=== PATIENT | female | born 1990 | race Asian ===

== ENCOUNTER → 2016-06-14 | Outpatient (CLI) | payer OTHER ==
[~2016-06-14] MED LIST: MTR600X PO; OXYC-57 PO; PRENTAB26 PO
[2016-06-14 16:01] LABS: THYROID STIMULATING HORMONE 2.26 uIu/ml (0.300-4.500)
== END | disposition home or self-care (01) ==
LOC: C.LAB1850 14:00
PROVIDERS: ATTEND Obstetrics & Gynecology
DX: Z86.39 Personal history of other endocrine, nutritional and metabolic disease (principal)

== ENCOUNTER → 2016-07-26 | Outpatient (CLI) | payer OTHER ==
[2016-07-26 14:29] LABS: URINE APPEARANCE CLEAR (CLEAR); URINE BILIRUBIN NEG (NEG); URINE COLOR DK YELLOW; URINE EPITHELIAL CELL AUTO >30 /lpf (0-5); URINE NITRITE NEG (NEG); URINE PH 6.5 (4.5-7.5); UROBILINOGEN NEG (NEG)
[2016-07-26 14:33] LABS: MANUAL MICROSCOPIC REQUIRED? NO; REVIEW REQ? NO
== END | disposition home or self-care (01) ==
LOC: C.LABSPEC 13:44
PROVIDERS: ATTEND Obstetrics & Gynecology
DX: Z34.83 Encounter for supervision of other normal pregnancy, third trimester (principal)

== ENCOUNTER → 2016-07-26 | Outpatient (CLI) | payer OTHER ==
[2016-07-26 12:41] LABS: HEMATOCRIT 35.2 % (37-47)
[2016-07-26 13:58] LABS: GTGD 50 Grams
== END | disposition home or self-care (01) ==
LOC: C.LAB1850 10:50
PROVIDERS: ATTEND Obstetrics & Gynecology
DX: Z34.83 Encounter for supervision of other normal pregnancy, third trimester (principal)

== ENCOUNTER → 2016-08-02 | Outpatient (CLI) | payer OTHER | END | disposition home or self-care (01) | LOC: C.LAB1850 07:54 | PROVIDERS: ATTEND Obstetrics & Gynecology | DX: O28.9 Unspecified abnormal findings on antenatal screening of mother (principal); Z3A.00 Weeks of gestation of pregnancy not specified ==

== ENCOUNTER → 2016-09-23 | Outpatient (CLI) | payer OTHER | END | disposition home or self-care (01) | LOC: C.LABSPEC 17:21 | PROVIDERS: ATTEND Obstetrics & Gynecology | DX: Z34.83 Encounter for supervision of other normal pregnancy, third trimester (principal) ==

== ENCOUNTER 2016-10-01 12:56 | Outpatient (CLI) | payer OTHER ==
[~2016-10-01 12:56] MED LIST changes: -MTR600X PO; -OXYC-57 PO
--- NOTE | 2016-10-07 13:13 | EDITING REQUIRED CODING QUERY ---
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 Please assist us with the question(s) below: Coding Question: The patient received care in labor and delivery on 09/21/16 as noted within the record. Please document the diagnosis that is being addressed by the medication/treatment. Provider Response: DIAGNOSIS: Decreased movement Thank you for your assistance, Aviva Cardenas - Driver Education Road Instructor
[2016-10-13] MEDS ORDERED: OXYC-57 PO (08:27)
[2016-10-13] MEDS ORDERED: MTR600X PO (08:27)
== END 2016-10-01 13:35 | disposition home or self-care (01) ==
LOC: C.OPB 12:56 → C.LD 12:56 → C.OPB 13:35
PROVIDERS: ATTEND Obstetrics & Gynecology
DX: O36.8130 Decreased fetal movements, third trimester, not applicable or unspecified (principal); Z3A.37 37 weeks gestation of pregnancy

== ENCOUNTER → 2016-10-07 | Outpatient (CLI) | payer OTHER ==
[~2016-10-07] MED LIST changes: +MTR600X PO; +OXYC-57 PO
[2016-10-07 15:25] LABS: URINE APPEARANCE CLEAR (CLEAR); URINE BILIRUBIN NEG (NEG); URINE COLOR YELLOW; URINE NITRITE NEG (NEG); URINE PH 6.5 (4.5-7.5); URINE SPECIFIC GRAVITY 1.014 (1.000-1.030); UROBILINOGEN NEG (NEG)
[2016-10-07 15:31] LABS: MANUAL MICROSCOPIC REQUIRED? NO; REVIEW REQ? NO
== END | disposition home or self-care (01) ==
LOC: C.LABSPEC 14:37
PROVIDERS: ATTEND Obstetrics & Gynecology
DX: O34.219 Maternal care for unspecified type scar from previous cesarean delivery (principal)

== ENCOUNTER 2016-10-09 22:22 | Inpatient (IN) | payer OTHER ==
[~2016-10-09] VITALS: Ht 160 cm; Wt 72.3 kg
[~2016-10-09 22:22] MED LIST changes: -MTR600X PO; -OXYC-57 PO
[2016-10-09] MEDS ORDERED: LACTATED RINGER'S 1000ML 1,000 ML IV SCH ×2 (23:07→23:09)
[2016-10-09] MEDS ORDERED: LACTATED RINGER'S 1000ML 1,000 ML IV PRN (23:07)
[2016-10-09] MEDS ORDERED: CITRIC ACID/SODIUM CITRATE 15 ML UDC ONE (23:13)
[2016-10-09 23:14] VITALS: Ht 160 cm; Wt 72.3 kg
[2016-10-09] MEDS ORDERED: CITRIC ACID/SODIUM CITRATE 15 ML UDC PO ONE (23:15)
[2016-10-09] MEDS ORDERED: CEFAZOLIN IV 2,000 MG in DEXTROSE 5% 50ML 50 ML IV ONE (23:30)
[2016-10-09] MEDS ORDERED: MoRPHine SULFATE PF 1 MG/ML 10 ML AMP/VIAL ONE (23:30)
[2016-10-09] MEDS ORDERED: FENTANYL CITRATE INJ 50 MCG/1 ML 2 ML VIAL ONE (23:30)
[2016-10-09] MEDS ORDERED: PHENYLEPHRINE HCL INJ 10 MG/ML VIAL ONE (23:34)
[2016-10-09] MEDS ORDERED: OXYTOCIN INJ 10 UNITS/ML VIAL ONE (23:34)
[2016-10-09 23:37] LABS: BASO % 0.1 %; BASO ABS # 0.01 K/uL (0-0.2); EOS % 0.7 %; HEMATOCRIT 36.8 % (37-47); IG% 0.2 %; LYMPH % 28.4 %; LYMPH ABS # 2.66 K/uL (1.2-3.4); MEAN CELL VOLUME 92.5 fL (80-100); MEAN CORPUSCULAR HEMOGLOBIN 29.9 pg (25-34); MEAN PLATELET VOLUME 9.4 fL (7.4-10.4); MONO % 6.6 %; PLATELET COUNT 265 K/uL (130-400); RED BLOOD COUNT 3.98 M/uL (4.2-5.4); WHITE BLOOD COUNT 9.35 K/uL (4.8-10.8)
[2016-10-09 23:39] LABS: COMPLETE YES; MEAN CORPUSCULAR HGB CONC 32.3 g/dl (32-36)
[2016-10-09 23:46] LABS: INR 0.9 (0.9-1.1); PARTIAL THROMBOPLASTIN RATIO 1.1; PROTHROMBIN TIME (PATIENT) 9.2 SECONDS (9.0-12.0)
--- NOTE | 2016-10-09 23:54 | HISTORY & PHYSICAL EXAMINATION ---
DATE OF ADMISSION: 10/09/2016 ADMITTING DIAGNOSES: 1. Term . 2. Active labor. 3. Previous section. ADMISSION HISTORY: The patient is a 26-year-old 2, para 1, with an EDC of 10/17/2016 by first trimester ultrasound, who presented to labor and delivery in active labor. The patient states the contractions began earlier this evening and increased in intensity. She denied rupture of membranes or vaginal bleeding. The patient had been scheduled for repeat section on 10/14/2016. Her first delivery was a primary section in 2014 in [place] for failure to progress. This was remarkable for an abnormal quad screen. The patient had a laboratory evaluation for this which included a Panorama which was negative. She also had an amniocentesis which showed 46 XX karyotype. The patient also had an elevated 1-hour Glucola at 28 weeks with a normal 2-hour glucose tolerance test. Her blood type is A positive, antibody negative, rubella immune, hepatitis B negative. She had a negative third trimester beta strep culture. PAST MEDICAL HISTORY: OBSTETRICAL: As above. ONCOLOGY SOCIAL WORK: None. MEDICAL: Hypothyroidism. SURGICAL: Tonsillectomy. ALLERGIES: No known drug allergies. SOCIAL HISTORY: No smoking. FAMILY HISTORY: Noncontributory. REVIEW OF SYSTEMS: As per HPI. ADMISSION PHYSICAL EXAMINATION: GENERAL: Shows a gravid female in no acute distress. VITAL SIGNS: Blood pressure 140/90. HEENT: Unremarkable. NECK: Supple. LUNGS: Clear. HEART: With a regular rhythm and rate. ABDOMEN: Gravid, vertex, positive heart tones, estimated weight of 8 pounds. PELVIC: Shows the cervix to be 3-4 cm dilated, 80% effaced and -2 station. EXTREMITIES: Show no deep calf tenderness. NEUROLOGIC: Grossly intact. IMPRESSION: A 26-year-old 2, para 1, 38+ weeks gestational age, active labor, previous section. PLAN: The patient had been scheduled for a repeat section and is in active labor, we will proceed with a repeat section. The patient had an elevated blood pressure and some protein in urine. No history of PIH or blood pressure problems during the . Preeclamptic labs will be ordered preoperatively and a decision if any further evaluation or treatment is needed will be decided post-. The risks, benefits and alternatives to the surgery have been discussed. While the benefits will be delivery of the infant, the risks are bleeding, infection, inadvertent injury to bowel or bladder, readmission or reoperation. The patient understands that. The permit has been signed and she wishes to proceed.
[2016-10-10] VITALS (19 sets, daily range): BP systolic 99–116; BP diastolic 60–76; PULSE 74–91; TEMP 36.7–37.5; O2SAT 95–100
[2016-10-10 00:04] LABS: CREATININE 0.95 mg/dl (0.60-1.20); URIC ACID 6.6 mg/dl (2.6-7.2)
[2016-10-10] MEDS ORDERED: OXYTOCIN INJ 10 UNITS/ML VIAL ONE (00:23)
[2016-10-10] MEDS ORDERED: NALOXONE HCL INJ 1 MG in SODIUM CHLORIDE 0.9% 1000ML 1,000 ML IV PRN (00:34)
[2016-10-10] MEDS ORDERED: SODIUM CHLORIDE 0.9% 1000ML 1,000 ML IV PRN (00:34)
[2016-10-10] MEDS ORDERED: LACTATED RINGER'S 1000ML 500 ML IV PRN (00:34)
[2016-10-10] MEDS ORDERED: NALOXONE HCL INJ 0.08 MG in SYRINGE 1.8 ML IV PRN (00:34)
[2016-10-10] MEDS ORDERED: MoRPHine SULFATE 2 MG/ML CARP IV PRN (00:45)
[2016-10-10] MEDS ORDERED: LANOLIN OINT EXT PRN ×2 (00:45)
[2016-10-10] MEDS ORDERED: MoRPHine SULFATE PF 1 MG/ML 10 ML AMP/VIAL EPI PRN (00:45)
[2016-10-10] MEDS ORDERED: HYDROCORTISONE ACETATE 25 MG SUPP PR PRN (00:45)
[2016-10-10] MEDS ORDERED: ONDANSETRON INJ 2 MG/ML 2 ML VIAL IV PRN ×2 (00:45→18:00)
[2016-10-10] MEDS ORDERED: DiphenhydrAMINE HCL 50 MG/ML VIAL IV PRN ×2 (00:45→18:00)
[2016-10-10] MEDS ORDERED: DIPHTHERIA/TETANUS/PERTUSSIS 0.5 ML SYR/VIAL IM. ONE (00:45)
[2016-10-10] MEDS ORDERED: NALOXONE HCL 0.4 MG/1 ML VIAL/CARP IV PRN (00:45)
[2016-10-10] MEDS ORDERED: NO NARCOTICS OR SEDATIVES SCH (00:45)
[2016-10-10] MEDS ORDERED: EpHEDrine SULFATE INJ 50 MG/ML AMP IV PRN (00:45)
[2016-10-10] MEDS ORDERED: MAGNESIUM HYDROXIDE SUSP 30 ML UDC PO PRN (00:45)
[2016-10-10] MEDS ORDERED: SENNA 8.6 MG TAB PO PRN (00:45)
[2016-10-10] MEDS ORDERED: NALBUPHINE HCL INJ 10 MG/ML AMP IV PRN (00:45)
[2016-10-10] MEDS ORDERED: MEPERIDINE HCL 25 MG/ML CARP IV PRN (00:45)
[2016-10-10] MEDS ORDERED: SUPERCREAM 0.870 % 15GM JAR EXT PRN (00:45)
[2016-10-10] MEDS ORDERED: BENZOCAINE 20% AER SPR 82.5 GM CAN EXT PRN (00:45)
--- NOTE | 2016-10-10 00:52 | [facility] Post Operative Brief Note ---
Immediate Operative Summary Operative Date Oct 10, 2016. Pre-Operative Diagnosis 1. Active labor 2. Previous caesarean section Post-Operative Diagnosis Same Procedure(s) Performed Repeat caesarean section, lower uterine transverse incision, delivery of live female child at 0011 on 10/10/16. Surgeon Dr. Pedersen Police Surgeon Surgeon(s) Aleena Arizmendi RN Estimated Blood Loss 1000cc Findings Viable female , Apgars 8/9 weight 6lbs 14ozs, gasses pending, laceration of fundus of uterus; nml appearing tubes and ovaries bilaterally Fluids (cc crystalloids) 2300 Specimens Placenta-hold Cord blood Cord blood gases Drains Tobar to gravity Anesthesia Spinal Complication(s) None Disposition L&D
--- NOTE | 2016-10-10 01:11 | OPERATIVE REPORT ---
DATE OF OPERATION: 10/10/2016 PREOPERATIVE DIAGNOSES: 1. Term . 2. Active labor. 3. Previous section. POSTOPERATIVE DIAGNOSES: Same. PROCEDURE PERFORMED: Repeat low cervical transverse section. SURGEON: Dr. Pedersen. ANESTHESIA: Spinal. FINDINGS: Viable female with Apgars of 8 and 9, weight of 6 pounds 14 ounces. Multiple adhesions of the omentum and uterus to the anterior surface of the fascia. Incidental repair of uterine laceration from dissection, normal appearing tubes and ovaries bilaterally. PROCEDURE IN DETAIL: The patient was taken to the operating room and after spinal anesthesia, was placed in supine position and draped and prepped in the usual fashion. Pfannenstiel type incision, excising previous surgical scar was made. Underlying subcutaneous tissue was dissected down to the ventral abdominal fascia, which was nicked and opened in a horizontal manner. Preperitoneal fascia was dissected away until the peritoneal cavity was entered. Bleeding was noted from the fundus of the uterus from a dense adhesion of the uterus to the anterior abdominal wall. This adhesion had been cut when dissecting the fascia off the anterior wall of the rectus muscle. Uterine incision was made and a viable female was delivered with thick meconium. Good vigorous cry at , terminating any meconium resuscitation. Cord was clamped and cut and the baby was passed off to pediatrics who was in attendance for the delivery. Cord gases, cord blood samples obtained. The placenta was delivered spontaneously. The adhesion of the uterus to the anterior fascia was cauterized and cut, allowing the uterus to be removed and delivered out of the pelvis. There was a 5 cm defect in the fundus of the uterus from the adhesion. The uterine incision from the was closed with 2 layers of 4-0 Vicryl, the first a running locking stitch, the second an imbricating stitch. The fundal laceration was repaired with a running 0 Monocryl suture. Hemostasis was present. The uterus was returned to the pelvic cavity. Paracolic gutters were cleared bilaterally of any blood tissue and/or clot. The incision was then copiously irrigated with over 1000 mL of warm saline, which was removed. Sponge and needle count was correct. Uterine incision and uterine laceration were inspected for hemostasis, which was present. The fascia was then closed laterally in a running 0 Vicryl stitch. The subcutaneous tissue was irrigated with warm saline and the skin incision was closed with a 4-0 Monocryl subcuticular suture. Sterile dressing was applied and the patient was taken to the recovery room in satisfactory condition. I attest to the content of the Intraoperative Record and any orders documented therein. Any exception s are noted below.
[2016-10-10] MEDS: KETOROLAC TROMETHAMINE 30 MG/ML VIAL IV. PRN ×2 (02:33→10:01)
--- NOTE | 2016-10-10 02:36 | Anesthesiology Progress Note ---
Anesthesia Post Op Note Date & Time Oct 10, 2016 at 02:36 Vital Signs Pain Intensity: 3.0 Notes Mental Status: alert / awake / arousable, participated in evaluation Pt Amnestic to Procedure: Yes Nausea / Vomiting: adequately controlled Pain: adequately controlled Airway Patency, RR, SpO2: stable & adequate BP & HR: stable & adequate Hydration State: stable & adequate Neuraxial Anesthesia: was administered, sensory block is resolving Anesthetic Complications: no major complications apparent
[2016-10-10] MEDS: OXYTOCIN INJ 20 UNITS in LACTATED RINGER'S 1000ML 1,000 ML IV SCH ×2 (02:38→11:04)
[2016-10-10] MEDS: DOCUSATE SODIUM 100 MG CAP PO SCH ×2 (07:41→19:46)
[2016-10-10] MEDS: FERROUS SULFATE 325 MG TAB PO SCH (07:41)
[2016-10-10] MEDS: PRENATAL VITAMIN TAB PO SCH (07:42)
[2016-10-10] MEDS ORDERED: KETOROLAC TROMETHAMINE 30 MG/ML VIAL IV. PRN (18:00)
[2016-10-10] MEDS ORDERED: OXYCODONE/ACETAMINOPHEN 5-325 TAB PO PRN (18:00)
[2016-10-10] MEDS ORDERED: DC INTRASPINAL MORPHINE SCH (18:00)
[2016-10-10] MEDS: OXYCODONE/ACETAMINOPHEN 5-325 TAB PO PRN (19:47)
[2016-10-10] MEDS: IBUPROFEN 600 MG TAB PO PRN (19:47)
[2016-10-11] MEDS: OXYCODONE/ACETAMINOPHEN 5-325 TAB PO PRN ×5 (00:31→21:12)
[2016-10-11] MEDS: IBUPROFEN 600 MG TAB PO PRN ×4 (00:31→21:11)
[2016-10-11 07:39] VITALS: BP 116/71; PULSE 90; TEMP 36.7; O2SAT 97
[2016-10-11] MEDS: FERROUS SULFATE 325 MG TAB PO SCH (07:53)
[2016-10-11] MEDS: DOCUSATE SODIUM 100 MG CAP PO SCH ×2 (07:53→20:11)
[2016-10-11] MEDS: PRENATAL VITAMIN TAB PO SCH (07:53)
[2016-10-11 07:56] LABS: HEMATOCRIT 26.2 % (37-47); MEAN CELL VOLUME 92.3 fL (80-100); MEAN CORPUSCULAR HEMOGLOBIN 29.9 pg (25-34); MEAN CORPUSCULAR HGB CONC 32.4 g/dl (32-36); MEAN PLATELET VOLUME 8.9 fL (7.4-10.4); PLATELET COUNT 200 K/uL (130-400); RED BLOOD COUNT 2.84 M/uL (4.2-5.4); WHITE BLOOD COUNT 10.25 K/uL (4.8-10.8)
[2016-10-11 07:59] LABS: BASO % 0.2 %; BASO ABS # 0.02 K/uL (0-0.2); COMPLETE YES; EOS % 0.5 %; IG% 0.3 %; LYMPH % 20.6 %; LYMPH ABS # 2.11 K/uL (1.2-3.4); MONO % 6.3 %; NEUT % 72.1 %
--- NOTE | 2016-10-11 08:01 | Progress Note ---
Subjective Oct 11, 2016. Subjective conversation w/ patient, physical exam Ambulation: ambulating normally Voiding: no voiding problems Passing Gas: Yes Diet Tolerance: Regular Diet Lochia: Moderate Feeding Type: Breast Feeding Review of Systems Constitutional: No fever, No chills Respiratory: No cough Abdomen: No nausea, No vomiting Objective Vital Signs Date Time Temp Pulse Resp B/P (MAP) Pulse Ox O2 Delivery O2 Flow Rate FiO2 10/11/16 07:39 36.7 90 20 116/71 (86) 97 Room Air 10/10/16 23:15 Room Air 10/10/16 23:15 36.8 90 16 99/60 (73) Room Air 10/10/16 19:45 37.2 77 16 114/76 (89) 96 Room Air 10/10/16 17:59 18 97 10/10/16 17:00 16 100 10/10/16 16:00 18 99 10/10/16 15:15 96 Room Air 10/10/16 15:15 37.2 76 16 114/76 (89) 95 Room Air 10/10/16 15:00 18 96 10/10/16 13:00 16 96 10/10/16 12:14 16 96 10/10/16 12:13 20 95 10/10/16 11:20 36.9 75 16 116/74 (88) 95 Room Air 10/10/16 11:20 16 95 10/10/16 11:12 36.7 74 16 116/75 (89) 96 Room Air 10/10/16 08:30 18 96 Physical Exam General Appearance: WELL-APPEARING, NO APPARENT DISTRESS Respiratory/Chest: no respiratory distress, no accessory muscle use Cardiovascular: no edema Abdomen: non tender, soft Fundus: Firm Incision Description: Clean, Dry & Intact Extremities: no calf tenderness Laboratory Results Last 24 Hours Test 10/11/16 06:53 White Blood Count 10.25 K/uL Red Blood Count 2.84 M/uL Hemoglobin 8.5 g/dL Hematocrit 26.2 % Mean Corpuscular Volume 92.3 fL Mean Corpuscular Hemoglobin 29.9 pg Mean Corpuscular Hemoglobin Concent 32.4 g/dl Platelet Count 200 K/uL Mean Platelet Volume 8.9 fL Neutrophils (%) (Auto) 72.1 % Lymphocytes (%) (Auto) 20.6 % Monocytes (%) (Auto) 6.3 % Eosinophils (%) (Auto) 0.5 % Basophils (%) (Auto) 0.2 % Neutrophils # (Auto) 7.39 K/uL Lymphocytes # (Auto) 2.11 K/uL Monocytes # (Auto) 0.65 K/uL Eosinophils # (Auto) 0.05 K/uL Basophils # (Auto) 0.02 K/uL RDW Standard Deviation 50.2 fL RDW Coefficient of Variation 15.3 % Immature Granulocyte % (Auto) 0.3 % Immature Granulocyte # (Auto) 0.03 K/uL Red Blood Cell Morphology Unremarkable Assessment and Plan Post-Op Day#: 1 Continue Routine Care: POD#1 with severe adhesions per Dr. Pedersen. Hgb pending this AM. Clinically recovering well, ,routine POC.
[2016-10-11 09:20] VITALS: BP 114/78; PULSE 88; O2SAT 96
[2016-10-11 15:30] VITALS: BP 103/84; PULSE 84; TEMP 36.6
[2016-10-11 19:30] VITALS: BP 106/67; PULSE 80; TEMP 36.5
[2016-10-11] MEDS ORDERED: BISACODYL 5 MG TABEC PO ONE (22:00)
[2016-10-11 23:45] VITALS: BP 119/82; PULSE 90; TEMP 36.7
[2016-10-12] MEDS ORDERED: BISACODYL 10 MG SUPP PR PRN (00:45)
[2016-10-12] MEDS: OXYCODONE/ACETAMINOPHEN 5-325 TAB PO PRN ×3 (03:11→21:53)
[2016-10-12] MEDS: IBUPROFEN 600 MG TAB PO PRN ×4 (03:11→21:53)
--- NOTE | 2016-10-12 05:53 | OB/GYN Progress Note ---
TRUCK OPERATOR Progress Note Date of Service Oct 12, 2016. Subjective conversation w/ patient, physical exam, chart review, lab review Ambulation: ambulating normally Voiding: no voiding problems Passing Gas: Yes Diet Tolerance: Regular Diet Lochia: Small Feeding Type: Breast Feeding (and bottle feeding) Pain: 3/10 controlled with pain medications Review of Systems Constitutional: No fever Respiratory: No shortness of breath Cardiac: No chest pain Breast: No problem reported Abdomen: No nausea, No vomiting Female : No dysuria Objective Vital Signs Date Time Temp Pulse Resp B/P (MAP) Pulse Ox O2 Delivery O2 Flow Rate FiO2 10/11/16 23:45 Room Air 10/11/16 23:45 36.7 90 20 119/82 (94) Room Air 10/11/16 19:30 36.5 80 20 106/67 (80) Room Air 10/11/16 15:30 36.6 84 20 103/84 (90) Room Air 10/11/16 15:30 Room Air 10/11/16 09:20 88 18 114/78 (90) 96 Room Air 10/11/16 07:55 Room Air 10/11/16 07:39 36.7 90 20 116/71 (86) 97 Room Air Physical Exam General Appearance: WELL-APPEARING Respiratory/Chest: lungs clear, normal breath sounds, no respiratory distress Cardiovascular: regular rate, rhythm Abdomen: normal bowel sounds, non tender, soft Fundus: Firm, Relation to Umbilicus (2 finger breaths below) Incision Description: Clean, Dry & Intact Extremities: non-tender, no pedal edema Laboratory Results Last 24 Hours Test 10/11/16 06:53 White Blood Count 10.25 K/uL Red Blood Count 2.84 M/uL Hemoglobin 8.5 g/dL Hematocrit 26.2 % Mean Corpuscular Volume 92.3 fL Mean Corpuscular Hemoglobin 29.9 pg Mean Corpuscular Hemoglobin Concent 32.4 g/dl Platelet Count 200 K/uL Mean Platelet Volume 8.9 fL Neutrophils (%) (Auto) 72.1 % Lymphocytes (%) (Auto) 20.6 % Monocytes (%) (Auto) 6.3 % Eosinophils (%) (Auto) 0.5 % Basophils (%) (Auto) 0.2 % Neutrophils # (Auto) 7.39 K/uL Lymphocytes # (Auto) 2.11 K/uL Monocytes # (Auto) 0.65 K/uL Eosinophils # (Auto) 0.05 K/uL Basophils # (Auto) 0.02 K/uL RDW Standard Deviation 50.2 fL RDW Coefficient of Variation 15.3 % Immature Granulocyte % (Auto) 0.3 % Immature Granulocyte # (Auto) 0.03 K/uL Red Blood Cell Morphology Unremarkable Medications Current Inpatient Medications Medications (Trade) Dose Ordered Sig/Wilda Route Start Time Stop Time Status Last Admin Dose Admin Morphine Sulfate (Duramorph Pf Inj) TODAY PRN EPI 10/10/16 00:45 Ketorolac Tromethamine (Toradol Inj) 30 mg Q6H PRN IV. 10/10/16 18:00 10/15/16 17:59 Oxycodone/ Acetaminophen (Percocet 5-325mg Tab) 1 tab Q4H PRN PO 10/10/16 18:00 10/24/16 17:59 10/12/16 03:11 1 TAB Oxycodone/ Acetaminophen (Percocet 5-325mg Tab) 2 tab Q4H PRN PO 10/10/16 18:00 10/24/16 17:59 Ibuprofen (Motrin Tab) 600 mg Q4H PRN PO 10/10/16 00:45 11/09/16 00:44 10/12/16 03:11 600 MG Ondansetron HCl (Zofran Inj) 4 mg Q4H PRN IV 10/10/16 18:00 11/09/16 17:59 Prenat Multivit/ Vest Maker/Iron/Folic Ac ( Vitamin Tab) 1 tab DAILY PO 10/10/16 08:00 11/09/16 07:59 10/11/16 07:53 1 TAB Bisacodyl (Dulcolax Supp) 10 mg PRN PRN VA 10/12/16 00:45 11/11/16 00:44 Docusate Sodium (coLACE CAP) 100 mg BID PO 10/10/16 08:00 11/09/16 07:59 10/11/16 20:11 100 MG Magnesium Hydroxide (Milk Of Magnesia Susp) 30 ml HS PRN PO 10/10/16 00:45 11/09/16 00:44 Ferrous Sulfate (Feosol Tab) 325 mg DAILY PO 10/10/16 08:00 11/09/16 07:59 10/11/16 07:53 325 MG Cocaine HCl (Supercream 0.870% Cr) BID PRN EXT 10/10/16 00:45 10/24/16 00:44 Lanolin (Lanolin Oint) PRN PRN EXT 10/10/16 00:45 11/09/16 00:44 Hydrocortisone Acetate (Anusol Hc Supp) 25 mg BID PRN VA 10/10/16 00:45 11/09/16 00:44 Benzocaine (Dermoplast Aero Spr) 1 appln PRN PRN EXT 10/10/16 00:45 11/09/16 00:44 Diphenhydramine HCl (Benadryl Cap) 25 mg QID PRN PO 10/10/16 18:00 11/09/16 17:59 10/10/16 19:47 25 MG Diphenhydramine HCl (Benadryl Inj) 25 mg QID PRN IV 10/10/16 18:00 11/09/16 17:59 Senna (Senokot Tab) 17.2 mg HS PRN PO 10/10/16 00:45 11/09/16 00:44 Assessment and Plan Post-Op Day Number: 2 Continue Routine Care: A/P: This is a 26 y/o female, , POD # 2 s/p repeat . She is ambulating and clinically stable. Plan: - Vitals signs are reviewed and WNL (Tmax 36.7 ) - Last Hgb is 8.5 (10/11) - Blood type A+, GBS neg, Rubella Immune - Routine post operative care - Encourage ambulation, monitor and control pain with medication as needed, continue with regular diet as tolerated and monitor lochia - Stool softeners and sitz bath recommended - Encourage breast feeding and educate about breast feeding Resident Physician Supervision Note: I was present with Dr. Armando during the history and exam. I discussed the case with the resident and agree with the findings and plan as documented in the note. Any exceptions or clarifications are listed here: POD#2 doing well. Continue routine postop care. Will anticipate dc home tomorrow. Documented By: Kalyani Og Resident Involvement: Resident Care Provided Care Provided: OB Delivery
[2016-10-12 06:41] LABS: HEMATOCRIT 24.9 % (37-47)
--- NOTE | 2016-10-12 07:58 | Discharge Instructions ---
Discharge Instructions Date of Service Oct 12, 2016. Admission Reason for Admission: Check Labor Discharge Discharge Diagnosis / Problem: after delivery Discharge Goals Goal(s): Routine recovery after delivery Medications Continue Dispensed Medications: supercream, dermaplast, lansinoh Activity Recommendations Activity Limitations: per Instructions/Follow-up section . Instructions / Follow-Up Instructions / Follow-Up ACTIVITY RECOMMENDATIONS: * Gradual return to full activity over the next 2-3 weeks. * No lifting - nothing heavier than baby over the next 2-3 weeks. * Do not engage in vigorous exercise, sexual activity or sports until cleared by your physician. * Do not drive or operate any motorized equipment until cleared by your physician. * You may shower/bathe daily. MEDICATIONS: For discomfort or pain, you may use Acetaminophen (Tylenol), Ibuprofen (Advil), or Naproxen (Aleve) following the package directions. For constipation you may use Colace following the package directions. BREAST CARE: If you are not breast feeding: * Wear a supportive bra 24 hours a day for one to two weeks. * Avoid stimulating your breasts and nipples as much as possible during the first few weeks after delivery. * When taking a shower, have the warm water hit your back, not breasts. * When your breasts feel full, apply ice packs. Usually three to four times a day helps ease the discomfort. * Take a mild pain medication (Tylenol / Motrin) when you are uncomfortable. If breast feeding: * Use breast milk to lubricate nipples. Lansinoh cream may be used for sore nipples. You do not need to remove cream prior to breast feeding. If using a different brand of cream, check the label for directions regarding removal of cream prior to nursing. * Wear a supportive bra. * If having problems with breasts or breast feeding, call a art consultant or your health care provider. SPECIAL CARE INSTRUCTIONS: When you are discharged from the hospital, it is important for you to follow the instructions listed below: * During the first week at home, you should be able to care for yourself and your baby. In addition, the usual light household activities are encouraged. * Limit your activities to the way you feel. Do not try to clean the house or move furniture. Be sensible. * If you actively engage in sports and have done so up until the time of your delivery, you may resume these activities as soon as you feel able. This may take up to one month or even longer. Use good judgment. * Continue to take your vitamins for at least six weeks after the of your baby. * Your diet need not be limited unless you were on a special diet before your delivery. Breast-feeding mothers need around 2500 calories per day and at least 64-80 ounces of fluid per day (8 to 10 glasses). * You should eat foods from the four major food groups. Crash diets or fad diets are to be avoided. Eating lean meats, fresh fruits and vegetables, low-fat dairy products, high fiber foods and a regular exercise program, will help you get back to your pre- weight without putting your health at risk. * Constipation is sometimes a problem after delivery. Take a mild laxative as needed. If breast feeding, Milk of Magnesia is acceptable to use. You may use a suppository or Fleets enema. * A daily shower or tub bath is suggested. Wash incision daily with warm soapy water and pat dry. It doesn't need to be covered unless drainage is present. * A bloody vaginal discharge will usually continue until around four weeks . A small amount of bleeding may continue for as long as six weeks. Vaginal discharge changes from the bright red bleeding after delivery to pink then brownish and finally yellowish-pink before becoming white and disappearing. * Bleeding may increase with activity. Your first period may come in 4-8 weeks. If you are breast feeding, your period may be delayed even longer. * [place]den (sex) can begin whenever both you and your partner feel comfortable and do not have any form of genital infection. It is recommended that you wait at least six weeks for internal and external healing to occur. If you have questions, please talk to your health care practitioner. A condom should be used to prevent infection and . * Foreplay, gentle intercourse and lubrication is very important the first several times to prevent pain. A water-based lubricant such as K-Y jelly or Astroglide may be used. * If you have RH negative blood and your baby is RH positive, you will receive RHOGAM by injection prior to discharge. The nurse will give you a card to keep with you that has the date and place that you received RHOGAM after delivery. * During your care, you had a Rubella screen done to check for the presence of rubella antibodies in your blood. If your test was negative, you will receive a Rubella vaccine prior to discharge. This vaccine may cause a fever, soreness at the injection site and flu-like symptoms. If these symptoms persist, notify your health care practitioner. is not advised for one month after a Rubella vaccine. * Verbalizes understanding of car seat law as reviewed with patient nursing. * Car Seat hand-out given and reviewed with patient by nursing. * Shaken baby information reviewed with patient by nursing. Call you doctor if: * Heavy bleeding (saturating several pads an hour) or passing clots the size of your fist. * A fever >101 degrees F (38.3 degrees C) on two occasions four hours apart and /or chills. * Unusual pain in the pelvic or vaginal areas. * Call the doctor for any increased redness, drainage or swelling around the incision and any pain unrelieved by prescribed pain medication. * "Baby Blues" lasting longer than two weeks. If you have any questions or concerns, call your health care practitioner at . FOLLOW UP VISIT: * Please call the office at to schedule a 6 week examination. It is important you keep this appointment. It is important for you to make arrangements for either yearly or twice yearly check-ups thereafter. Current Hospital Diet Patient's current hospital diet: Regular OB Diet Discharge Diet Recommended Diet: Regular Diet Procedures Procedures Performed: Repeat caesarean section, lower uterine transverse incision, delivery of live female child at 0011 on 10/10/16. Pending Studies Studies pending at discharge: no Medical Emergencies . Who to Call and When: Medical Emergencies: If at any time you feel your situation is an emergency, please call [phone] immediately. . Non-Emergent Contact Non-Emergency issues call your: Injection Press Operator . . "Provider Documentation" section prepared by Slime Armando. . VTE Core Measure Inpt VTE Proph given/why not?: SCD's
[2016-10-12 08:15] VITALS: BP 112/88; PULSE 92; TEMP 36.7
[2016-10-12] MEDS: PRENATAL VITAMIN TAB PO SCH (09:17)
[2016-10-12] MEDS: DOCUSATE SODIUM 100 MG CAP PO SCH ×2 (09:17→20:03)
[2016-10-12] MEDS: FERROUS SULFATE 325 MG TAB PO SCH (09:17)
[2016-10-12 15:40] VITALS: BP 114/73; PULSE 85; TEMP 36.9; O2SAT 97
[2016-10-12 23:25] VITALS: BP 121/79; PULSE 88; TEMP 37
[2016-10-13] MEDS: IBUPROFEN 600 MG TAB PO PRN ×2 (04:02→08:16)
[2016-10-13] MEDS: PRENATAL VITAMIN TAB PO SCH (08:16)
[2016-10-13] MEDS: FERROUS SULFATE 325 MG TAB PO SCH (08:16)
[2016-10-13] MEDS: DOCUSATE SODIUM 100 MG CAP PO SCH (08:16)
[2016-10-13] MEDS: OXYCODONE/ACETAMINOPHEN 5-325 TAB PO PRN (08:16)
[2016-10-13 08:20] VITALS: BP 118/77; PULSE 82; TEMP 37; O2SAT 97
--- NOTE | 2016-10-13 08:26 | Progress Note ---
Subjective Oct 13, 2016. Subjective conversation w/ patient, physical exam, chart review, lab review Ambulation: ambulating normally Voiding: no voiding problems Diet Tolerance: Regular Diet Lochia: Small Feeding Type: Breast Feeding Objective Vital Signs Date Time Temp Pulse Resp B/P (MAP) Pulse Ox O2 Delivery O2 Flow Rate FiO2 10/12/16 23:25 37.0 88 18 121/79 (93) 10/12/16 23:25 Room Air 10/12/16 15:40 97 Room Air 10/12/16 15:40 36.9 85 18 114/73 (87) 97 Room Air Physical Exam General Appearance: WELL-APPEARING Respiratory/Chest: lungs clear Abdomen: soft Fundus: Firm Incision Description: Clean, Dry & Intact Extremities: no calf tenderness Assessment and Plan Post-Op Day#: 3 Continue Routine Care: home
[2016-10-13] MEDS ORDERED: OXYC-57 PO (08:27)
[2016-10-13] MEDS ORDERED: MTR600X PO (08:27)
[2016-10-13 10:30] VITALS: BP_DIAS 77; PULSE 82; TEMP 37
--- NOTE | 2016-10-28 12:26 | DISCHARGE SUMMARY ---
ADMITTING DIAGNOSES: 1. Term . 2. Active labor. 3. Previous section. DISCHARGE DIAGNOSES: Same. PROCEDURES PERFORMED: Repeat low cervical transverse section. DISCHARGE MEDICATIONS: Percocet 5/325, 1-2 p.o. q. 4-6 hours p.r.n. pain and Motrin 600 mg p.o. q. 6 hours p.r.n. pain. ADMISSION HISTORY: The patient is a 26-year-old 2, para 1 with an EDC of 17 October by first trimester ultrasound, who presented to labor and delivery in active labor. The patient states the contractions had began earlier in the evening and increased in intensity. She denied rupture of membranes or vaginal bleeding. The patient had been scheduled for repeat section on 14 October. Her first delivery was a primary section in 2014 for failure to progress. This was remarkable for an abnormal quad screen. The patient had a laboratory evaluation for this, which included panorama which was negative. She also had an amniocentesis, which showed a 46XX karyotype. The patient had an elevated 1-hour Glucola at 28 weeks with a normal 2-hour glucose tolerance test. Her blood type is A positive, antibody negative, rubella immune, and hepatitis B negative. She had a negative third trimester beta strep culture. ADMISSION PHYSICAL EXAMINATION: GENERAL: Showed a gravid female in no acute distress. VITAL SIGNS: Blood pressure 140/90. HEENT: Unremarkable. NECK: Supple. LUNGS: Clear. HEART: With a regular rhythm and rate. ABDOMEN: Gravid, vertex, positive heart tones, estimated weight of 8 pounds. PELVIC: Showed the cervix to be 3-4 cm dilated, 80% effaced and -2 station. EXTREMITIES: Showed no deep calf tenderness. NEUROLOGIC: Grossly intact. ADMISSION LABORATORY VALUES: Showed an H&H of 11.9 and 36.8. HOSPITAL COURSE: The patient was deemed to be in active labor. She had an elevated blood pressure upon admission with some protein in the urine. No history of preeclampsia or blood pressure problems during the . Preeclamptic labs were ordered preoperatively to evaluate for possible preeclampsia and these all came back within normal limits. As such, the patient was taken to the operating room, where she underwent the repeat low section, delivering a viable female infant with Apgars of 8 and 9 and weight of 6 pounds 14 ounces. There were multiple adhesions of the omentum and uterus to the anterior surface of the fascia. There was an incidental repair of uterine laceration from the dissection with normal appearing tubes and ovaries bilaterally. Postoperatively, the patient did well. Tobar catheter was removed. On the first postoperative day, H&H came back at 8.5 and 26.2. She was discharged home on the third postoperative day with the routine discharge instructions and the prescriptions for the medications as listed as above. She will follow up in the office in 6 weeks' time for a postoperative check, but as always she has been instructed to call if there with any questions, problems or difficulties.
== END 2016-10-13 10:55 | disposition home or self-care (01) | DRG 766 ==
LOC: C.OPB 22:22 → C.LD 22:22 → C.OPB 23:09 → C.LD 23:09 → C.OBG 10-10 03:13
PROVIDERS: ADMIT Obstetrics & Gynecology; ATTEND Obstetrics & Gynecology
PROC: 0UQ90ZZ Repair Uterus, Open Approach (ICD-10-PCS; principal; 2016-10-10)
PROC: 10D00Z1 Extraction of Products of Conception, Low, Open Approach (ICD-10-PCS; principal; 2016-10-10)
DX: O34.211 Maternal care for low transverse scar from previous cesarean delivery (principal); O75.82 Onset (spontaneous) of labor after 37 completed weeks of gestation but before 39 completed weeks gestation, with delivery by (planned) cesarean section; O71.81 Laceration of uterus, not elsewhere classified; O28.8 Other abnormal findings on antenatal screening of mother; O12.14 Gestational proteinuria, complicating childbirth; R03.0 Elevated blood-pressure reading, without diagnosis of hypertension; Z3A.38 38 weeks gestation of pregnancy; Z37.0 Single live birth